=== PATIENT | female | born 1995 | race African-American/Black ===

== ENCOUNTER 2017-06-21 07:53 | Inpatient (IN) ==
[2017-06-21] MEDS ORDERED: ONDANSETRON 4 MG/2 ML VIAL IV PRN (08:48)
[2017-06-21] MEDS ORDERED: LACTATED RINGERS 1,000 ML IV PRN (08:48)
--- NOTE | 2017-06-21 09:18 | Ultrasound Report ---
US OB >= 14 weeks fetus Date: 06/21/2017 8:23 AM Indication: Abdominal pain Comparison: None available Findings: Single intrauterine gestation is seen in cephalicpresentation.. Placenta is in anterior position and appears heterogeneous in density. measurements estimate gestational age at 20 weeks 4 days. Estimated weight: 1178 g No cardiac activity is identified heart rate: 0 bpm Impression: demise as described above with heterogeneous placenta could indicate placental abruption. The Ultrasound images were captured and stored. PROCEDURE INTERPRETED AT [facility] DEPARTMENT OF RADIOLOGY Final Report Signed by: Dr. Cory Mon
--- NOTE | 2017-06-21 09:18 | OB/GYN History & Physical ---
History of Present Illness Chief complaint: 28 weeks abruption and demise History of present illness: Ms. Morin is a 21 year old female With no history of chronic hypertension who felt bad last night checked her blood pressure was noted to be elevated but she did not come in until this morning. She was found to have a demise and clinical evidence of abruption. Patient was counseled she will be placed on labetalol for blood pressure management and Apresoline as needed. She be admitted for Cytotec induction. Following completion of her will have her worked up with perinatology to look for blood dyscrasia or other potential risk factor for abruption. 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 General appearance: mild distress - Head Head exam: Present: normal inspection, normocephalic, atraumatic - Eye Eye exam: Present: EOMI - Neck Neck exam: Present: normal inspection - Respiratory Respiratory exam: Present: clear to auscultation bilaterally - Breast Breasts: as per HPI Menstruation: as per HPI - Cardiovascular Cardiovascular exam: Present: regular rate and rhythm - GI/Abdominal GI/Abdominal exam: Present: normal bowel sounds - Extremities Exam Extremities exam: Present: normal inspection, normal capillary refill - Back Exam Back exam: Present: normal inspection - Neurological Exam Neurological exam: Present: alert, oriented X3 - Psychiatric Psychiatric exam: Present: normal affect, normal mood - Skin Skin exam: Present: normal color Assessment and Plan (1) with 28 completed weeks gestation Status: Acute Current Visit: Yes (2) demise > 22 weeks, delivered, current hospitalization Status: Acute Current Visit: Yes (3) Placental abruption Status: Acute Current Visit: Yes Quality Measures - VTE Contraindication to Pharmacological VTE Prophylaxis: Clinical assessment deems Pt at low risk, no prophalaxis needed
[2017-06-21] MEDS ORDERED: LABETALOL 200 MG TABLET PO SCH (09:30)
[2017-06-21] MEDS: miSOPROStol 200 MCG TABLET VAG SCH ×4 (09:40→18:10)
[2017-06-21 09:45] LABS: Basophils % 0.2 % (0.0-0.8); Eosinophils % 0.3 % (0.00-10.9); Hematocrit 32.1 VOL% (35.7-47.0); Hemoglobin 11.3 GM/DL (12.0-16.0); Immature Granulocytes % 0.7 %; Immature Granulocytes Absolute 0.08 #; Lymphocytes # 1.3 10*3/uL (1.4-4.0); Lymphocytes % 11.2 % (21.3-54.2); Mean Corpuscular HGB Conc 35.2 GM/DL (32-36); Mean Corpuscular Hemoglobin 33 PG (27-34); Mean Corpuscular Volume 94.1 FL (87-102); Mean Platelet Volume 10.5 FL (9.6-12.0); Monocytes # 0.8 10*3/uL (0.11-0.8); Monocytes % 6.5 % (1.7-12.7); Neutrophils # 9.5 10*3/uL (1.4-7.4); Neutrophils % 81.1 % (38.7-73.9); Platelet Count 194 T/CUMM (130-400); Red Blood Count 3.41 MC/CUMM (3.8-5.5); Red Cell Distribution Width 12.2 % (9.3-17.3); White Blood Count 11.7 T/CUMM (4-12)
[2017-06-21] MEDS ORDERED: hydrALAZINE 20 MG/1 ML VIAL IV PRN (09:48)
[2017-06-21 10:19] LABS: Albumin 2.7 G/DL (3.4-5.0); Bilirubin,Total 0.6 MG/DL (0.2-1.0); Calcium 9.2 MG/DL (8.5-10.1); Osmolality,Calculated 272.5 MOS/KG (273-304); Potassium 3.5 MMOL/L (3.5-5.1); Total Protein 6.4 G/DL (6.4-8.3); Uric Acid 5.4 MG/DL (2.6-6.0)
[2017-06-21] MEDS ORDERED: BUTORPHANOL 2 MG/ML VIAL IV ONE (10:23)
[2017-06-21] MEDS ORDERED: NALOXONE 0.4 MG/ML VIAL IV PRN (10:23)
[2017-06-21] MEDS ORDERED: HYDROmorphone PCA 30 MG/30 ML SYRINGE IV SCH (10:30)
[2017-06-21] MEDS ORDERED: OXYTOCIN/LR 20 UNIT/1,000 ML BAG IV PRN (10:57)
[2017-06-21 11:16] LABS: Apearance,Urine Slightly Hazy (Clear); Bacteria,Urine Few /HPF (Few); Bilirubin,Urine Negative (Negative); Blood, Urine Large mg/dL (Negative); Glucose,Urine (UA) Negative (Negative); Ketones,Urine 5 mg/dL (Negative); Nitrite,Urine Negative (Negative); Protein,Urine 100 MG/DL; RBC,Urine 3 /HPF (0-4); Squamous Epithelial Cell,Urine Occasional /HPF (0-10); Urine Color Yellow (Yellow); Urine Specific Gravity 1.005 (1.001-1.035); Urine Urobilinogen < 2.0 EU/DL (0.2-1.0); WBC,Urine 3 /HPF (0-6)
[2017-06-21 11:20] LABS: Barbiturates Screen,Urine Negative (Negative); Benzodiazepines Screen,Urine Negative (Negative); Cannabinoid Screen,Urine Negative (Negative); Opiate Screen,Urine Negative (Negative); Phencyclidine Screen,Urine Negative (Negative)
[2017-06-21] MEDS: LACTATED RINGERS 1,000 ML IV SCH ×2 (12:42→19:51)
[2017-06-21] MEDS ORDERED: ACETAMINOPHEN 325 MG TABLET PO PRN (17:39)
[2017-06-21 17:52] LABS: Apearance,Urine CLEAR (Clear); Bilirubin,Urine Negative (Negative); Blood, Urine Negative (Negative); Glucose,Urine (UA) Negative (Negative); Ketones,Urine 5 mg/dL (Negative); Mucus,Urine Occasional /LPF (Occasional); Nitrite,Urine Negative (Negative); Protein,Urine >=500 MG/DL; RBC,Urine 3 /HPF (0-4); Squamous Epithelial Cell,Urine Occasional /HPF (0-10); Urine Color Yellow (Yellow); Urine Specific Gravity 1.012 (1.001-1.035); Urine Urobilinogen < 2.0 EU/DL (0.2-1.0); WBC,Urine 2 /HPF (0-6)
[2017-06-21] MEDS: LABETALOL 200 MG TABLET PO SCH (19:05)
[2017-06-22] MEDS: LACTATED RINGERS 1,000 ML IV SCH ×2 (01:57→02:39)
[2017-06-22] MEDS: miSOPROStol 200 MCG TABLET VAG SCH (02:15)
[2017-06-22] MEDS: LABETALOL 200 MG TABLET PO SCH ×3 (02:15→17:52)
--- NOTE | 2017-06-22 08:51 | OB/GYN Progress Note ---
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 She consequently had a normal sinus vaginal delivery on harrison of a nonviable fetus over an intact perineum. Placenta delivered spontaneously intact. Estimated blood loss was 150 cc. There were no complications. There were no lacerations. 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
--- NOTE | 2017-06-22 08:55 | Discharge Summary ---
Hospital Course - Hospital Course Hospital Course: the patient did well. She had quick return of bowel bladder function management afebrile and normotensive throughout her hospitalization. She is tentatively scheduled for discharge on day #1 Diagnosis - Discharge Diagnosis (1) with 28 completed weeks gestation Status: Acute (2) demise > 22 weeks, delivered, current hospitalization Status: Acute (3) Placental abruption Status: Acute Discharge Plan - Discharge Data Disposition: Disch To Home/Self Care Condition at Discharge: Stable Discharge Diet: advance to your usual diet Activity: resume usual activities as tolerated Hygiene: may shower Weight Bearing at Discharge: full weight bearing Driving: no restrictions Contact your physician if you experience:: fever over 101, Difficulty voiding, Redness or swelling, Nausea/Vomiting, Shortness of breath, Bleeding, pain uncontrolled by pain medications - Discharge Medications New Labetalol Tab [Trandate Tab] 200 mg PO Q8H #90 tablet Acetamin/Codeine 300-30 Tab [Tylenol/Codeine #3] 1 tablet PO Q4H PRN #15 tablet PRN Reason: Abdominal Pain Acetaminophen Tab [Tylenol Tab] 650 mg PO Q6H PRN tablet PRN Reason: Fever, Headache, Mild Pain Continue Vit No.124/Iron/Folic [ Vitamin Tablet] 1 tablet PO DAILY - Follow Up or Referral Follow Up: Erwin Ramirez MD [Physician] - 2 Weeks - Forms/Instructions Exam - Constitutional Vitals: Period Temp Pulse Resp BP Sys/Troy Pulse Ox Last 24 Hr 98.3 F-102.2 F 83-112 18-18 139-171/77-97 Discharge Results Procedures and tests throughout hospitalization: Pending Orders 06/21/17 Urine Culture Routine Labs on day of discharge: Labs from last 24 hours 06/21/17 06/21/17 06/21/17 Unknown 17:18 09:30 WBC RBC Hgb Hct MCV MCH MCHC RDW Plt Count MPV Neut % (Auto) Lymph % (Auto) [place] % (Auto) Eos % (Auto) Baso % (Auto) Neut # (Auto) Lymph # (Auto) [place] # (Auto) Eos # (Auto) Baso # (Auto) Immature Gran % Nucleated RBC % Immature Gran # Nucleated RBCs # Immature Plt Fraction Sodium Potassium Chloride Carbon Dioxide Anion Gap BUN Creatinine GFR Calculation BUN/Creatinine Ratio Glucose Calculated Osmolality Uric Acid Calcium Total Bilirubin AST ALT Alkaline Phosphatase Total Protein Albumin Globulin Albumin/Globulin Ratio Urine Color Yellow Yellow Urine Appearance Clear Slightly hazy Urine pH 6.0 7.0 Ur Specific [place] 1.012 1.005 Urine Protein >=500 100 Urine Glucose (UA) Negative Negative Urine Ketones 5 5 Urine Blood Negative Large Urine Nitrate Negative Negative Urine Bilirubin Negative Negative Urine Urobilinogen < 2.0 H < 2.0 H Urine Leukocytes Negative Small H Urine RBC 3 3 Urine WBC 2 3 Ur Squamous Epith Cells Occasional Occasional Urine Bacteria Few Urine Mucus Occasional Ur Culture Indicated? Not indicated Results to follow Urine Opiates Screen Negative Ur Barbiturates Screen Negative Ur Phencyclidine Scrn Negative U Amphetamine/Methamph Negative U Benzodiazepines Scrn Negative U Cocaine Metab Screen Negative U Cannabinoids Screen Negative Treponema pallidum IgG Blood Type Antibody Screen 06/21/17 06/21/17 06/21/17 09:00 09:00 09:00 WBC RBC Hgb Hct MCV MCH MCHC RDW Plt Count MPV Neut % (Auto) Lymph % (Auto) [place] % (Auto) Eos % (Auto) Baso % (Auto) Neut # (Auto) Lymph # (Auto) [place] # (Auto) Eos # (Auto) Baso # (Auto) Immature Gran % Nucleated RBC % Immature Gran # Nucleated RBCs # Immature Plt Fraction Sodium 139 Potassium 3.5 Chloride 108 H Carbon Dioxide 22 Anion Gap 12.5 BUN 4 L Creatinine 0.70 GFR Calculation 145 BUN/Creatinine Ratio 5.00 L Glucose 76 Calculated Osmolality 272.5 L Uric Acid 5.4 Calcium 9.2 Total Bilirubin 0.60 AST 29 ALT 18 Alkaline Phosphatase 168 H Total Protein 6.4 Albumin 2.7 L Globulin 3.7 H Albumin/Globulin Ratio 0.7 L Urine Color Urine Appearance Urine pH Ur Specific [place] Urine Protein Urine Glucose (UA) Urine Ketones Urine Blood Urine Nitrate Urine Bilirubin Urine Urobilinogen Urine Leukocytes Urine RBC Urine WBC Ur Squamous Epith Cells Urine Bacteria Urine Mucus Ur Culture Indicated? Urine Opiates Screen Ur Barbiturates Screen Ur Phencyclidine Scrn U Amphetamine/Methamph U Benzodiazepines Scrn U Cocaine Metab Screen U Cannabinoids Screen Treponema pallidum IgG Nonreactive Blood Type A POSITIVE Antibody Screen Negative 06/21/17 09:00 WBC 11.7 RBC 3.41 L Hgb 11.3 L Hct 32.1 L MCV 94.1 MCH 33 MCHC 35.2 RDW 12.2 Plt Count 194 MPV 10.5 Neut % (Auto) 81.1 H Lymph % (Auto) 11.2 L [place] % (Auto) 6.5 Eos % (Auto) 0.3 Baso % (Auto) 0.2 Neut # (Auto) 9.5 H Lymph # (Auto) 1.3 L [place] # (Auto) 0.8 Eos # (Auto) 0.0 Baso # (Auto) 0.0 Immature Gran % 0.7 Nucleated RBC % 0.0 Immature Gran # 0.08 Nucleated RBCs # 0.00 Immature Plt Fraction 0.0 Sodium Potassium Chloride Carbon Dioxide Anion Gap BUN Creatinine GFR Calculation BUN/Creatinine Ratio Glucose Calculated Osmolality Uric Acid Calcium Total Bilirubin AST ALT Alkaline Phosphatase Total Protein Albumin Globulin Albumin/Globulin Ratio Urine Color Urine Appearance Urine pH Ur Specific [place] Urine Protein Urine Glucose (UA) Urine Ketones Urine Blood Urine Nitrate Urine Bilirubin Urine Urobilinogen Urine Leukocytes Urine RBC Urine WBC Ur Squamous Epith Cells Urine Bacteria Urine Mucus Ur Culture Indicated? Urine Opiates Screen Ur Barbiturates Screen Ur Phencyclidine Scrn U Amphetamine/Methamph U Benzodiazepines Scrn U Cocaine Metab Screen U Cannabinoids Screen Treponema pallidum IgG Blood Type Antibody Screen DS: Provider Date of admission: 06/21/17 08:49 Primary care physician: . No PCP Attending physician on admission: Kenrick Cao Consults: 06/21/17 08:49 Consult to Anesthesiology [CONS] Routine Consulting Provider: Reason for Anesthesiology: Epidural Consult Comment: Epidural for pain managment Discharging clinician: Kenrick Cao Expected date of discharge: 06/23/17
[2017-06-22] MEDS ORDERED: DOCUSATE SODIUM 100 MG CAPSULE PO PRN (10:06)
[2017-06-22] MEDS: MULTIVITAMIN (PRENATAL) TABLET PO SCH (10:49)
[2017-06-22] MEDS: IBUPROFEN 800 MG TABLET PO PRN (10:50)
[2017-06-23] MEDS: LABETALOL 200 MG TABLET PO SCH ×2 (02:38→09:59)
[2017-06-23] MEDS: IBUPROFEN 800 MG TABLET PO PRN ×2 (02:40→08:25)
[2017-06-23 04:00] LABS: Basophils % 0.3 % (0.0-0.8); Eosinophils # 0.2 10*3/uL (0.0-0.87); Eosinophils % 1.3 % (0.00-10.9); Hematocrit 26.3 VOL% (35.7-47.0); Hemoglobin 8.9 GM/DL (12.0-16.0); Immature Granulocytes % 2.4 %; Immature Granulocytes Absolute 0.29 #; Lymphocytes # 2.6 10*3/uL (1.4-4.0); Lymphocytes % 21.8 % (21.3-54.2); Mean Corpuscular HGB Conc 33.8 GM/DL (32-36); Mean Corpuscular Hemoglobin 33 PG (27-34); Mean Corpuscular Volume 96.3 FL (87-102); Mean Platelet Volume 9.8 FL (9.6-12.0); Monocytes # 0.8 10*3/uL (0.11-0.8); Monocytes % 6.4 % (1.7-12.7); Neutrophils % 67.8 % (38.7-73.9); Platelet Count 159 T/CUMM (130-400); Red Blood Count 2.73 MC/CUMM (3.8-5.5); Red Cell Distribution Width 12.8 % (9.3-17.3); White Blood Count 11.9 T/CUMM (4-12)
[2017-06-23 08:04] VITALS: BP 149/71
[2017-06-23] MEDS: MULTIVITAMIN (PRENATAL) TABLET PO SCH (09:59)
--- NOTE | 2017-06-23 11:22 | Pathology Report from [facility] ---
[facility] ACCESSION # : [id number] PATIENT NAME : Kenya Valenzuela ORDERING DR : GUILLERMINA BARKER MD CLINICAL HX: Abruption 28.3 weeks POST-OP DX: Same SPECIMEN INFO: Placenta GROSS DESCRIPTION: Received fresh labeled with the patients name KENYA VALENZUELA and consists of a 215 gram placenta which measures 19.0 x 14.5 x 1.3 cm. membranes are pink-hernandes and translucent. The umbilical cord measures 36.0 cm, contains three vessels and is centrally inserted. The surface is hogan- pink and intact. The cotyledons and the maternal surface is predominately flattened with areas of clotted blood noted measuring 8.0 x 6.0 cm. Sections submitted: A membranes and cord, B and maternal surfaces. DIAGNOSIS FOR KENYA VALENZUELA: PLACENTA, MEMBRANES, UMBILICAL CORD: Focal placental infarction, mild intervillous blood, dystrophic calcification. Tri-vessel umbilical cord. Membranes with focal acute and chronic inflammation and attached blood. COLLECTED DATE: 06/22/2017 [facility] REPORT DATE: 06/23/2017 ELECTRONICALLY SIGNED BY: Shad Nixon M.D. 06/23/2017 - 9:24:21 DOROTHY
== END 2017-06-23 10:15 | disposition home or self-care (01) | DRG 774 ==
LOC: N.LDOUT 07:53 → N.LD 07:54 → N.OB 06-22 15:35
PROVIDERS: ADMIT Specialist; ATTEND Specialist

== ENCOUNTER 2018-06-17 00:16 | Inpatient (IN) ==
[2018-06-17 00:55] LABS: Apearance,Urine CLEAR (Clear); Bacteria,Urine Occasional /HPF (Few); Bilirubin,Urine Negative (Negative); Blood, Urine Negative (Negative); Glucose,Urine (UA) Negative (Negative); Ketones,Urine Negative (Negative); Mucus,Urine Occasional /LPF (Occasional); Nitrite,Urine Negative (Negative); Protein,Urine 100 MG/DL; RBC,Urine <1 /HPF (0-4); Squamous Epithelial Cell,Urine Occasional /HPF (0-10); Urine Color Yellow (Yellow); Urine Specific Gravity 1.015 (1.001-1.035); WBC,Urine 1 /HPF (0-6)
[2018-06-17] MEDS ORDERED: LACTATED RINGERS 1,000 ML IV SCH ×2 (01:30→03:00)
[2018-06-17] MEDS ORDERED: MEPERIDINE 50 MG/1 ML VIAL IM ONE (01:30)
[2018-06-17] MEDS ORDERED: PROMETHAZINE 25 MG/1 ML VIAL IM ONE (01:30)
[2018-06-17] MEDS ORDERED: miSOPROStol 200 MCG TABLET ONE (02:33)
[2018-06-17] MEDS ORDERED: OXYTOCIN/LR 20 UNIT/1,000 ML BAG IV ONE ×2 (02:33→02:47)
[2018-06-17] MEDS ORDERED: CARBOPROST TROMETHAMINE 250 MCG/ML AMP IM ONE (02:34)
[2018-06-17] MEDS ORDERED: LIDOCAINE 1% 50 ML VIAL ONE (02:34)
[2018-06-17] MEDS ORDERED: ONDANSETRON 4 MG/2 ML VIAL IV PRN (02:45)
[2018-06-17] MEDS ORDERED: WITCH HAZEL PADS 100/JAR TOP PRN (02:58)
[2018-06-17] MEDS ORDERED: LANOLIN 50% CREAM 0.3 OZ TUBE TOP PRN (02:58)
[2018-06-17] MEDS ORDERED: oxyCODONE/ACETAMINOPHEN 5-325 MG TABLET PO PRN (02:58)
[2018-06-17] MEDS ORDERED: BISACODYL 10 MG SUPP RECTAL PRN (02:58)
[2018-06-17] MEDS ORDERED: ACETAMINOPHEN 325 MG TABLET PO PRN (02:58)
[2018-06-17] MEDS ORDERED: MEASLES/MUMPS/RUBELLA VACCINE 0.5 ML VIAL SUBCUT ONE (02:58)
[2018-06-17] MEDS ORDERED: BENZOCAINE 20%/MENTHOL 0.5% SPRAY 56 GM CAN TOP PRN (02:58)
[2018-06-17] MEDS ORDERED: RHO(D) IMMUNE GLOBULIN 300 MCG SYRINGE IM ONE (02:58)
[2018-06-17] MEDS ORDERED: DIPH/TET/ACEL PERT BOOSTER VACCINE 0.5 ML VIAL IM ONE (02:58)
[2018-06-17] MEDS ORDERED: HYDROCORTISONE 2.5% RECTAL CREAM 30 GM TUBE TOP PRN (02:58)
[2018-06-17 03:13] LABS: Basophils % 0.3 % (0.0-0.8); Eosinophils % 0.5 % (0.00-10.9); Hemoglobin 12.1 GM/DL (12.0-16.0); Immature Granulocytes % 0.4 %; Immature Granulocytes Absolute 0.03 #; Lymphocytes % 13.7 % (21.3-54.2); Mean Corpuscular HGB Conc 32.7 GM/DL (32-36); Mean Corpuscular Hemoglobin 30 PG (27-34); Mean Corpuscular Volume 92.5 FL (87-102); Mean Platelet Volume 9.7 FL (9.6-12.0); Monocytes # 0.5 10*3/uL (0.11-0.8); Monocytes % 6.6 % (1.7-12.7); Neutrophils # 5.8 10*3/uL (1.4-7.4); Neutrophils % 78.5 % (38.7-73.9); Platelet Count 181 T/CUMM (130-400); White Blood Count 7.4 T/CUMM (4-12)
[2018-06-17 03:36] LABS: Albumin 2.5 G/DL (3.4-5.0); Bilirubin,Total 0.6 MG/DL (0.2-1.0); Calcium 8.3 MG/DL (8.5-10.1); Osmolality,Calculated 274.7 MOS/KG (273-304); Potassium 3.8 MMOL/L (3.5-5.1); Total Protein 6.4 G/DL (6.4-8.3); Uric Acid 4.1 MG/DL (2.6-6.0)
[2018-06-17 04:58] LABS: HIV Antigen/Antibody Result Nonreactive (Nonreactive); Hepatitis B Surface Ag Quant < 0.10 Index; Hepatitis B Surface Ag Result Negative (Negative); Rubella Antibody IgG 363.2 IU/ML
[2018-06-17] MEDS: IBUPROFEN 800 MG TABLET PO PRN ×2 (05:32→15:11)
[2018-06-17 06:28] LABS: Basophils % 0.1 % (0.0-0.8); Eosinophils % 0.1 % (0.00-10.9); Hematocrit 33.1 VOL% (35.7-47.0); Hemoglobin 10.8 GM/DL (12.0-16.0); Immature Granulocytes % 0.6 %; Immature Granulocytes Absolute 0.06 #; Lymphocytes % 9.6 % (21.3-54.2); Mean Corpuscular HGB Conc 32.6 GM/DL (32-36); Mean Corpuscular Hemoglobin 30 PG (27-34); Mean Corpuscular Volume 90.9 FL (87-102); Mean Platelet Volume 9.9 FL (9.6-12.0); Monocytes # 0.5 10*3/uL (0.11-0.8); Monocytes % 4.8 % (1.7-12.7); Neutrophils # 8.5 10*3/uL (1.4-7.4); Neutrophils % 84.8 % (38.7-73.9); Platelet Count 172 T/CUMM (130-400); Red Blood Count 3.64 MC/CUMM (3.8-5.5); Red Cell Distribution Width 12.8 % (9.3-17.3)
[2018-06-17] MEDS: LABETALOL 200 MG TABLET PO SCH ×2 (09:15→20:40)
[2018-06-17] MEDS: DOCUSATE SODIUM 100 MG CAPSULE PO SCH ×3 (09:15→20:45)
[2018-06-18] MEDS: oxyCODONE/ACETAMINOPHEN 5-325 MG TABLET PO PRN ×2 (00:11→06:12)
[2018-06-18] MEDS: IBUPROFEN 800 MG TABLET PO PRN (00:11)
[2018-06-18 03:59] LABS: Basophils % 0.3 % (0.0-0.8); Eosinophils # 0.2 10*3/uL (0.0-0.87); Eosinophils % 1.7 % (0.00-10.9); Hematocrit 29.1 VOL% (35.7-47.0); Hemoglobin 9.7 GM/DL (12.0-16.0); Lymphocytes # 3.4 10*3/uL (1.4-4.0); Lymphocytes % 33.3 % (21.3-54.2); Mean Corpuscular HGB Conc 33.3 GM/DL (32-36); Mean Corpuscular Hemoglobin 30 PG (27-34); Mean Corpuscular Volume 90.1 FL (87-102); Mean Platelet Volume 10.2 FL (9.6-12.0); Monocytes # 0.7 10*3/uL (0.11-0.8); Neutrophils # 5.8 10*3/uL (1.4-7.4); Neutrophils % 56.7 % (38.7-73.9); Platelet Count 207 T/CUMM (130-400); Red Blood Count 3.23 MC/CUMM (3.8-5.5); White Blood Count 10.2 T/CUMM (4-12)
[2018-06-18 07:20] VITALS: BP 146/85
[2018-06-18] MEDS: LABETALOL 200 MG TABLET PO SCH (08:13)
[2018-06-18] MEDS: DOCUSATE SODIUM 100 MG CAPSULE PO SCH (08:18)
[2018-06-18] MEDS ORDERED: INFLUENZA VIRUS VACCINE 0.5 ML SYRINGE IM ONE (10:10)
== END 2018-06-18 15:05 | disposition home or self-care (01) | DRG 560 ==
LOC: N.LDOUT 00:16 → N.LD 00:18 → N.OB 08:05
PROVIDERS: ADMIT Obstetrics & Gynecology; ATTEND Obstetrics & Gynecology